=== PATIENT | male | born 1935 | race Caucasian/White ===

== ENCOUNTER → 2019-08-15 | Outpatient (CLI) | payer MEDICARE ==
[~2019-08-15] MED LIST: CHILDREN'S ASPI81 M1 PO
== END ==
LOC: M.LAB 07:45 → M.CL 08-18 09:00
PROVIDERS: ATTEND Internal Medicine Cardiovascular Disease
DX: Z01.812 Encounter for preprocedural laboratory examination (principal)

== ENCOUNTER 2019-08-18 07:47 | Observation (INO) | payer MEDICARE ==
[~2019-08-18] VITALS: Ht 172.7 cm; Wt 80.7 kg
--- NOTE | ~2019-08-18 | H ---
[address] [address] HISTORY AND PHYSICAL Name: JANET ODELL Room: [address] Frankie MMartínez#: [id number] Admission: 08/18/19 Attend Phys: Hunter Moody MD, F Discharge: 08/19/19 Date of : 31 Report #: [id number] THIS REPORT FOR: //name// cc: Lili Long NP, Stefany NP ~ THIS REPORT FOR: //name// Please refer to the History and Physical performed in the physician's office. By: [id number] Records Staff [facility] /[place]
[2019-08-18 08:21] VITALS: BP 105/64
[2019-08-18 08:42] LABS: HEMATOCRIT 38.8 % (42.0-52.0); HEMOGLOBIN 13.5 gm/dL (14.0-18.0); MCH 32.4 pg (26.0-34.0); MCHC 34.7 g/dL (28.0-37.0); MCV 93.2 fL (80.0-100.0); MPV 6.9 fl. (7.2-11.1); RBC 4.17 mil/uL (4.50-6.00); RDW-CV 14.6 % (10.5-14.5); WBC 5.7 thou/uL (4.0-11.0)
[2019-08-18 08:46] LABS: CALCIUM 8.7 mg/dL (8.5-10.1); CREATININE 0.7 mg/dL (0.6-1.3); POTASSIUM 4.2 mmol/L (3.5-5.1)
[2019-08-18 08:48] LABS: APTT 29.2 Seconds (25.0-31.3); INR 1.1; PROTIME 11.6 Seconds (9.20-11.50)
[2019-08-18 08:51] LABS: ALBUMIN 3.6 g/dL (3.4-5.0); TOTAL BILIRUBIN 1.3 mg/dL (<0.1-1.0); TOTAL PROTEIN 6.8 g/dL (6.4-8.2)
[2019-08-18 12:45] VITALS: BP 89/59
--- NOTE | 2019-08-18 13:00 | EKG ---
[place] [address] ELECTROCARDIOGRAM REPORT Name: JANET ODELL Room: [address]R.#: [id number] Admission: 08/18/19 Attend Phys: Hunter Moody MD Discharge: Date of : 31 Date of Service: 08/18/19 0842 Report #: [id number] THIS REPORT FOR: //name// [facility] Test Date: 2019-08-18 Test Time: 08:42:55 Pat Name: JANET ODELL Department: Room: [facility] Gender: M Sales Merchandise Associate: : [id number] Requested By: Hunter Moody Order Number: [id number] Reading MD: Hunter Moody Measurements Intervals [place] Rate: 56 P: [place]: QRS: -67 QRSD: 158 T: 52 QT: 495 QTc: 478 Interpretive Statements Atrial fibrillation RBBB and LAFB No previous ECG available for comparison Electronically Signed On 08-18-2019 12:58:21 CDT by Hunter Moody [email or web address] <ELECTRONICALLY SIGNED> By: Hunter Moody MD, [facility] 08/18/19 1258 Hunter Moody MD, [facility] /EPI
[2019-08-18 14:30] VITALS: BP 92/57
--- NOTE | 2019-08-18 14:40 | NUR ---
PT ADMITTED AT 1415. ONRA. LEFT SHOULDER IMMOBILIZER IN PLACE. VS TAKEN. FOOD PROVIDED. NO COMPLAINT.WILL CONTINUE TO ONITOR
[2019-08-18 16:00] VITALS: BP 90/57
--- NOTE | 2019-08-18 18:00 | CARD ---
[address] [address] CARDIAC CATH REPORT Name: JANET ODELL Room: [address] M.RDarvin#: [id number] Admission: 08/18/19 Attend Phys: Hunter Moody MD, F Discharge: Date of : 31 Report #: [id number] THIS REPORT FOR: //name// cc: Lili Long NP, Stefany NP ~ APPROVED REPORT Study performed: 08/18/2019 09:22:22 Patient Status: Out-Patient Room #: Event Personnel: Hunter Moody Frame Stripper, Atif Falk RN Public Health Program Manager, Trung Horton RTR Monitor, Amy Rosas RTR Scrub Exam: Insertion of Single Chamber Permanent Pacemaker Indications: Sick Sinus Syndrome/Tachy Thai Syndrome The patient is a 84 year-old male with a history of Atrial Fibrillation. Conscious Sedation Fentanyl 50 mcg Procedure The patient underwent informed consent. We discussed the details of the procedure including the risks, which include, but not limited to bleeding, infection, vascular damage, cardiac perforation, and pneumothorax. He understood these risks and was willing to proceed. As such, he was brought to the EP/Cardiac Catheterization laboratory in a fasting and sedated state and prepped and draped in a sterile fashion, received IV antibiotics prior to initiation of the procedure and a venogram was performed showing patency of the left axillary vein. The patient underwent conscious sedation, with no related complications. The patient was brought to the EP/Cardiac Catheterization laboratory and the left chest and shoulder were prepped and draped in a sterile manner. During this case, Fluoroscopy and visipaque 20cc were used for imaging. The left subclavian region was infiltrated with 2% Lidocaine with Epinephrine subcutaneous anesthesia. A transverse incision was made in the left upper chest cavity. The subcutaneous pocket was formed via blunt dissection. Percutaneous venous access was achieved and an introducer sheath was inserted into the [place] [address] CARDIAC CATH REPORT Name: JANET ODELL Room: [address]R.#: [id number] Admission: 08/18/19 Attend Phys: Hunter Moody MD, F Discharge: Date of : 31 Report #: [id number] Sheaths were positions using the modified Seldinger technique Utilizing fluoroscopic guidance, the ventricular lead wire was advanced over the wires and positioned in the right atria and right ventricle respectively. Capturing and sensing thresholds were verified. Electrode Parameters R Wave: 3.7 mv Ventricular Threshold: 0.8 v @ 0.4 ms Ventricular Resistance: 836 ohm The lead and pulse generator were placed into the subcutaneous pocket. Sharp and sponge counts were confirmed to be correct. At this time the pocket was closed subcutaneously with a 2.0 Vicryl and the skin was closed with a 4.0 Vicryl. The operative site was dressed in sterile fashion with skin affix and the patient was transferred to the floor in stable condition. Complications The patient tolerated the procedure well and there were no complications associated with the procedure. Findings Specimens Removed: No Estimated Blood Loss: 5 cc Conclusion successful placement of a single lead pacemaker generator and ventricular lead. <ELECTRONICALLY SIGNED> By: Hunter Moody MD, [facility] 08/18/191757 57 57Dalong Moody MD, [facility] /INF
[2019-08-18 20:00] VITALS: BP 102/60
--- NOTE | 2019-08-18 20:00 | NUR ---
RECEIVED REPORT AND ASSUMED CARE OF PT, ASSESSMENT COMPLETED. TELEMETRY ON SHOWING V-PACED. NEW PACEMAKER INCISION CLEAN AND INTACT. SLING ON WITH REMINDER GIVEN TO KEEP WRIST IN PLACE. DENIES DISCOMFORT. WILL CONT TO MONITOR AND ASSIST NEEDED.
[2019-08-18 23:55] VITALS: BP 108/66
[2019-08-19 04:00] VITALS: BP 116/70
--- NOTE | 2019-08-19 06:50 | NUR ---
ASSESSMENT REMAINS UNCHANGED. SLEPT FAIRLY WELL. ASSISTED TO BR WITH ASSIST AND HOLDING ONTO FURNITURE, UNABLE TO USE WALKER DUE TO IMMOBILIZER TO LT ARM. TELEMETRY CONT TO SHOW V PACED. HS GOALS OF REST AND SAFETY ACHIEVED. HOURLY ROUNDING OBSERVED.
[2019-08-19 08:00] VITALS: BP 108/66
[2019-08-19] MEDS ORDERED: CHILDREN'S ASPI81 M1 PO (09:21)
[2019-08-19 09:22] VITALS: BP 116/70
--- NOTE | 2019-08-19 10:25 | NUR ---
ASSUMED PT CARE REPORT RECEIVED FROM NURSE. PT IS AOX4. ON RA. VSS. LEFT SHOULDER IMMOBILIZER IN PLACE. PT GETS UP TO CHAIR WITH WALKER. DISCHARGE ORDERED. HEART MONITOR RETREIVED. IV LINE REMOVED. DC INSTRUCTIONS GIVEN TO PATIENT. PT LEFT UNIT AT 1020 ACCOMPANIED BY NURSING STAFF BELONGINGS BROUGHT ALONG. PT TO GO HOME WITH HIS SON WHO PICKED HIM UP.
--- NOTE | 2019-08-22 15:21 | D ---
[address] [address] DISCHARGE SUMMARY Name: JANET ODELL Room: [address] Frankie Friend#: [id number] Admission: 08/18/19 Attend Phys: Hunter Moody MD, F Discharge: 08/19/19 Date of : 31 Report #: [id number] THIS REPORT FOR: //name// cc: Lili Long NP, Stefany NP ~ THIS REPORT FOR: //name// CC: Hunter Long DATE OF SERVICE: 08/19/2019 DISCHARGE DIAGNOSES: 1. Sick sinus syndrome. 2. Permanent atrial fibrillation. CONSULTANTS: None. PROCEDURE: Placement of a permanent single-lead pacemaker generator via left subclavian vein. HISTORY OF PRESENT ILLNESS: The patient is an 84-year-old single white male who I was brought to the outpatient department to undergo placement of a permanent pacemaker. The patient has a history of permanent atrial fibrillation. He apparently has never been cardioverted. Recently, he noticed some lightheadedness and fatigue. He went to see his primary care physician, his heart rate is down into the 30s. I saw him in the office on 08/07 and felt he had evidence of sick sinus syndrome. I recommended placement of a permanent pacemaker. He denies any chest pain. He does have occasional edema. Denied any palpitations or syncope. When I saw him in the office, his ECG showed slow atrial flutter with a right bundle branch block. Recent lab work included cholesterol 118, triglyceride 40, LDL 48 and HDL 59. TSH 1.8. PAST MEDICAL HISTORY: Significant for tonsillectomy. He had a history of GI bleed, felt to be secondary to diverticular disease requiring transfusion. He had no history of hypertension, diabetes and hyperlipidemia. MEDICATIONS: His only medication at this time include aspirin 81 mg a day. PHYSICAL EXAMINATION: GENERAL: Revealed an elderly, frail-appearing male. VITAL SIGNS: His blood pressure was 110/68, pulse is 60 and irregular. CHEST: Clear to auscultation. CARDIOVASCULAR: Irregular rhythm. EXTREMITIES: [place] [address] DISCHARGE SUMMARY Name: JANET ODELL Room: [address]#: [id number] Admission: 08/18/19 Attend Phys: Hunter Moody MD, F Discharge: 08/19/19 Date of : 31 Report #: [id number] SKIN: Warm and dry. LABORATORY WORK: Sodium 137, potassium 4.2, BUN 19 and creatinine 0.7. His liver function studies were normal. His white blood cell count 5.7 and hemoglobin 13.5. HOSPITAL COURSE: The patient was felt to have permanent atrial fibrillation with a slow response. He was felt to have sick sinus syndrome. He was symptomatic. I recommended placement of a permanent single-lead MRI compatible pacemaker. This was performed on the first hospital day. He tolerated the procedure well. During the night, he remained predominantly ventricular paced. The following day, the pacemaker analyzer was felt to be functioning normally. He was discharged to continue aspirin 81 mg a day. He was not felt to be a candidate for anticoagulation because of his previous history of GI bleed and his advanced age. He was not to lift the left arm above his head for the next week. He is not to shower for 24 hours. He was not to place any dressings over the incision, which was covered with Dermabond. He was discharged to return to care of Dr. Liang Dent for routine medical care. I plan on seeing him in Cardiology Clinic on 09/03 for pacemaker followup. He was given a transmitter to check his pacemaker from home. He was to contact my office if he had any fever, shortness of breath and lightheadedness. I believe the patient is not a candidate for a Watchman because of his advanced age. I did recommend he avoid sodium in his diet because of his history of edema. He did undergo an echocardiogram prior to procedure as an outpatient and was found to have normal left ventricular function. At the time of discharge, the patient had a blood pressure of 110/70 and pulse is 60, he is predominantly ventricular paced and he was afebrile. Followup chest x-ray showed no pneumothorax. <ELECTRONICALLY SIGNED> By: Hunter Moody MD, FACC 08/22/19 1521 0750 0838Dalong Moody MD, FAC /nt
== END 2019-08-19 10:37 | disposition home or self-care (01) ==
LOC: M.CL 07:47 → M.TBA-CV 10:33 → M.CL 10:45 → M.2W 14:20
PROVIDERS: ADMIT Internal Medicine Cardiovascular Disease
DX: I49.5 Sick sinus syndrome (principal); I48.92 Unspecified atrial flutter; I48.21 Permanent atrial fibrillation; I10 Essential (primary) hypertension; E11.9 Type 2 diabetes mellitus without complications; E78.5 Hyperlipidemia, unspecified